=== PATIENT | male | born 1965 | race Caucasian/White ===

== ENCOUNTER 2018-08-09 13:02 | Outpatient (CLI) | payer OTHER | END 2018-08-09 13:03 | disposition short-term general hospital (02) | LOC: EMS 13:02 | PROVIDERS: ATTEND Surgery | DX: R42 Dizziness and giddiness (principal) | CPT/HCPCS: A0425; A0427 ==

== ENCOUNTER 2018-08-18 08:05 | Emergency (ER) | payer OTHER ==
[2018-08-18] MEDS ORDERED: ADENOSINE 6 MG/2 ML VIAL IVP STA (08:51)
[2018-08-18] MEDS ORDERED: SODIUM CHLORIDE 0.9% 1,000 ML IV ONE (08:51)
--- NOTE | 2018-08-18 08:53 | ED Physician Documentation ---
History of Present Illness - Stated complaint Stated Complaint: ELEVATED HEART RATE - Chief complaint Chief Complaint: Cardiac - History obtained from History obtained from: Patient - History of Present Illness Timing: Last night - Additonal information Additional information: 53-year-old male with a history of SVT has developed symptoms last night he felt that he was able to get his rate down and but awoke this morning with a rapid heart rate again. He is come in this morning feeling weak but not ill. He denies any recent illness denies any fever vomiting diarrhea. He has had a cough for the past 3 weeks. He states that over the past year he has had rapid heart rate approximately 9 times and 10 days ago he went into the emergency department at [facility] in [place] and required cardioversion with adenosine. [facility] and is awaiting consultation with cardiology through the [facility]. He is not currently on any medications. Review of Systems Constitutional: denies: Fever, Chills, Myalgias Eyes: denies: Decreased vision Ears: denies: Ear pain Nose: reports: Rhinorrhea / runny nose, Congestion Throat: reports: Sore throat Cardiac: reports: Palpitations. denies: Chest pain / pressure Respiratory: reports: Cough. denies: Dyspnea GI: denies: Abdominal Pain, Nausea, Vomiting : denies: Dysuria, Frequency Skin: denies: Rash Musculoskeletal: denies: Neck pain, Back pain, Extremity pain Neurologic: denies: Generalized weakness, Focal weakness, Numbness PD PAST MEDICAL HISTORY - Past Medical History Past Medical History: Yes Cardiovascular: Arrhythmia - Past Surgical History General: Hiatal hernia repair Ortho: Amputation - Present Medications Home Medications: Ambulatory Orders Medication Instructions Recorded Confirmed No Known Home Medications 08/18/18 08/18/18 - Allergies Allergies/Adverse Reactions: Allergies Allergy/AdvReac Type Severity Reaction Status Date / Time No Known Drug Allergies Allergy Verified 08/18/18 08:23 - Social History Does the pt smoke?: No Smoking Status: Never smoker Does the pt drink ETOH?: Yes Does the pt have substance abuse?: No - Immunizations Immunizations are current?: Yes PD ED PE NORMAL - Vitals Vital signs reviewed: Yes (tachy ) - General General: Alert and oriented X 3, No acute distress, Well developed/nourished - HEENT HEENT: Atraumatic, PERRL, EOMI, Ears normal, Moist mucous membranes, Pharynx benign - Neck Neck: Supple, no meningeal sign, No bony TTP - Cardiac Cardiac: No murmur, Other (tachy and regular ) - Respiratory Respiratory: No respiratory distress, Clear bilaterally - Abdomen Abdomen: Soft, Non tender - Back Back: No CVA TTP, No spinal TTP - Derm Derm: Normal color, Warm and dry, No rash - Extremities Extremities: No edema, Other (There is a left BKA present. ) - Neuro Neuro: Alert and oriented X 3, room maid 2-12 intact, No motor deficit, No sensory deficit, Normal speech Eye Opening: Spontaneous Motor: Obeys Commands Verbal: Oriented GCS Score: 15 - Psych Psych: Normal mood, Normal affect Results - Vitals Vitals: Vital Signs - 24 hr 08/18/18 08/18/18 08/18/18 08:18 08:23 08:25 Temperature 97.8 C H Heart Rate 146 H 146 H Respiratory 16 16 Rate Blood Pressure 106/82 H 77/64 L Blood Pressure 92/74 [Right] O2 Saturation 96 95 08/18/18 08/18/18 08/18/18 09:00 09:06 09:08 Temperature Heart Rate 139 H 78 76 Respiratory 13 12 Rate Blood Pressure 101/79 125/91 H 123/89 H Blood Pressure [Right] O2 Saturation 97 95 08/18/18 08/18/18 08/18/18 09:20 09:30 10:43 Temperature Heart Rate 70 Respiratory 15 Rate Blood Pressure 122/82 H 126/94 H 134/93 H Blood Pressure [Right] O2 Saturation 97 Oxygen O2 Source Room air - EKG (time done) 0814 Rhythm: Other (junctional tachycardia) [place]: LAD Ischemia: Normal ST segments Compare to prior EKG: Old EKG unavailable Computer interpretation: Agree with computer - Labs Labs: Laboratory Tests 08/18/18 08/18/18 08/18/18 08:40 08:40 08:40 WBC 8.7 RBC 5.09 Hgb 14.5 Hct 43.9 MCV 86.3 MCH 28.6 MCHC 33.1 RDW 13.7 Plt Count 259 MPV 8.6 Neut # (Auto) 5.3 Lymph # (Auto) 2.1 [place] # (Auto) 0.9 Eos # (Auto) 0.3 Baso # (Auto) 0.0 Absolute Nucleated RBC 0.00 Nucleated RBC % 0.0 Sodium 138 Potassium 4.6 Chloride 102 Carbon Dioxide 25 Anion Gap 11.0 BUN 14 Creatinine 0.9 Estimated GFR (MDRD) 88 L Glucose 112 H Calcium 9.1 Total Bilirubin 0.9 AST 23 ALT 19 Alkaline Phosphatase 83 Troponin I < 0.04 Total Protein 6.8 Albumin 4.0 Globulin 2.8 Albumin/Globulin Ratio 1.4 Lipase 34 Procedures - IVC sono (time) 0850 Bedside IVC sono: IVC measures (cm) (1.3), IVC collapsed c insp (cm) (complete), Dehydration (est 1 liter deficit) PD MEDICAL DECISION MAKING - ED course Complexity details: reviewed old records, reviewed results, re-evaluated patient, considered differential, d/w patient ED course: 53-year-old male with a history of SVT has developed rapid heart rate this morning he has persistence of his rapid heart rate he appears to tolerate the rhythm and is mildly volume depleted. Saline is administered as well as 6 mg of adenosine with conversion to a normal sinus rhythm. Departure - Departure Disposition: 01 Home, Self Care Clinical Impression: SVT (supraventricular tachycardia), Dehydration Condition: Stable Instructions: ED Dehydration, ED Tachycardia Pat PSVT Follow-Up: Your, doctor at the [facility] [Other] Discharge Date/Time: 08/18/18 10:50
[2018-08-18 09:29] LABS: BASOPHILS % (AUTO) 0.5 %; EOSINOPHILS # (AUTO) 0.3 10^3/uL (0.0-0.7); HGB - HEMOGLOBIN 14.5 g/dL (14.0-18.0); LYMPHOCYTES # (AUTO) 2.1 10^3/uL (1.5-3.5); LYMPHOCYTES % (AUTO) 24.4 %; MEAN CORPUSCULAR HEMOGLOBIN 28.6 pg (27.0-31.0); MEAN CORPUSCULAR HGB CONC 33.1 g/dL (32.0-36.0); MEAN CORPUSCULAR VOLUME 86.3 fL (80.0-94.0); MEAN PLATELET VOLUME 8.6 fL (7.4-11.4); MONOCYTES # (AUTO) 0.9 10^3/uL (0.0-1.0); MONOCYTES % (AUTO) 10.2 %; NEUTROPHILS # (AUTO) 5.3 10^3/uL (1.5-6.6); NEUTROPHILS % (AUTO) 60.9 %; PLT - PLATELET COUNT 259 10^3/uL (130-450); RED BLOOD COUNT 5.09 10^6/uL (4.70-6.10); RED CELL DISTRIBUTION WIDTH 13.7 % (12.0-15.0); WHITE BLOOD COUNT 8.7 x10^3/uL (4.8-10.8)
[2018-08-18 09:32] LABS: ALBUMIN/GLOBULIN RATIO 1.4 (1.0-2.2); BILIRUBIN,TOTAL 0.9 mg/dL (0.2-1.0); CALCIUM 9.1 mg/dL (8.5-10.3); CREATININE 0.9 mg/dL (0.6-1.2); TOTAL PROTEIN 6.8 g/dL (6.7-8.2)
[2018-08-18 10:44] VITALS: BP 134/93
== END 2018-08-18 10:50 | disposition home or self-care (01) ==
LOC: ED 08:05
DX: I47.1 Supraventricular tachycardia (principal); E86.0 Dehydration
CPT/HCPCS: 36415; 80053; 83690; 84484; 85025; 93005; 96361; 96374; 99284; J0153

== ENCOUNTER 2018-11-26 18:43 | Emergency (ER) | payer OTHER ==
[2018-11-26 19:17] LABS: BASOPHILS % (AUTO) 0.5 %; EOSINOPHILS # (AUTO) 0.3 10^3/uL (0.0-0.7); EOSINOPHILS % (AUTO) 4.3 %; HGB - HEMOGLOBIN 15.1 g/dL (14.0-18.0); LYMPHOCYTES # (AUTO) 2.1 10^3/uL (1.5-3.5); LYMPHOCYTES % (AUTO) 29.1 %; MEAN CORPUSCULAR HEMOGLOBIN 29.6 pg (27.0-31.0); MEAN CORPUSCULAR HGB CONC 33.8 g/dL (32.0-36.0); MEAN CORPUSCULAR VOLUME 87.7 fL (80.0-94.0); MEAN PLATELET VOLUME 8.8 fL (7.4-11.4); MONOCYTES # (AUTO) 0.6 10^3/uL (0.0-1.0); MONOCYTES % (AUTO) 7.6 %; NEUTROPHILS # (AUTO) 4.2 10^3/uL (1.5-6.6); NEUTROPHILS % (AUTO) 58.5 %; PLT - PLATELET COUNT 246 10^3/uL (130-450); RED CELL DISTRIBUTION WIDTH 13.9 % (12.0-15.0); WHITE BLOOD COUNT 7.2 x10^3/uL (4.8-10.8)
[2018-11-26] MEDS ORDERED: ADENOSINE 6 MG/2 ML VIAL IVP STA ×2 (19:24→19:38)
[2018-11-26] MEDS ORDERED: SODIUM CHLORIDE 0.9% 1,000 ML IV ONE (19:24)
--- NOTE | 2018-11-26 19:25 | ED Physician Documentation ---
PD HPI CHEST PAIN - Stated complaint Stated Complaint: ELEVATED HEART RATE - Chief complaint Chief Complaint: Cardiac - History obtained from History obtained from: Patient - History of Present Illness Timing - onset: How many hours ago (couple), Today Timing - details: Abrupt onset, Still present (tried valsalva at home without improvement.) Quality: Tightness Location: Substernal Associated symptoms: Palpitations. No: Shortness of air, Diaphoresis, Nausea Similar symptoms before: Diagnosis (SVT) Recently seen: Other (getting referral to Cardiology at [facility].) Review of Systems Constitutional: denies: Fever Nose: denies: Rhinorrhea / runny nose, Congestion Cardiac: reports: Palpitations Respiratory: denies: Dyspnea, Cough GI: denies: Vomiting, Diarrhea PD PAST MEDICAL HISTORY - Past Medical History Cardiovascular: Arrhythmia - Past Surgical History General: Hiatal hernia repair Ortho: Amputation - Present Medications Home Medications: Ambulatory Orders Medication Instructions Recorded Confirmed No Known Home Medications 08/18/18 08/18/18 - Allergies Allergies/Adverse Reactions: Allergies Allergy/AdvReac Type Severity Reaction Status Date / Time No Known Drug Allergies Allergy Verified 08/18/18 08:23 - Social History Does the pt smoke?: No Smoking Status: Never smoker Does the pt drink ETOH?: Yes Does the pt have substance abuse?: No - Immunizations Immunizations are current?: Yes PD ED PE NORMAL - Vitals Vital signs reviewed: Yes - General General: Alert and oriented X 3, No acute distress, Well developed/nourished - Neck Neck: Supple, no meningeal sign, No adenopathy, No JVD - Cardiac Cardiac: No murmur. No: RRR (fast at 150s, regular) - Respiratory Respiratory: Clear bilaterally - Abdomen Abdomen: Soft, Non tender - Derm Derm: Normal color, Warm and dry - Extremities Extremities: Other (prior leg amputation) - Neuro Neuro: Alert and oriented X 3, No motor deficit, Normal speech Results - Vitals Vitals: Oxygen O2 Source Room air - EKG (time done) 18:58 Rate: Rate (enter#) (158) Rhythm: SVT [place]: Normal Ischemia: Normal ST segments. No: ST elevation c/w ischemia, ST depression 19:39 Rate: Rate (enter#) (79) Rhythm: NSR [place]: Normal Intervals: Normal [place] QRS: Normal Ischemia: Normal ST segments. No: ST elevation c/w ischemia, ST depression - Labs Labs: Laboratory Tests 11/26/18 11/26/18 11/26/18 19:06 19:06 19:06 WBC 7.2 RBC 5.10 Hgb 15.1 Hct 44.7 MCV 87.7 MCH 29.6 MCHC 33.8 RDW 13.9 Plt Count 246 MPV 8.8 Neut # (Auto) 4.2 Lymph # (Auto) 2.1 [place] # (Auto) 0.6 Eos # (Auto) 0.3 Baso # (Auto) 0.0 Absolute Nucleated RBC 0.01 Nucleated RBC % 0.1 Sodium 137 Potassium 4.0 Chloride 104 Carbon Dioxide 21 Anion Gap 12.0 BUN 13 Creatinine 1.0 Estimated GFR (MDRD) 78 L Glucose 143 H Calcium 9.9 Magnesium Total Bilirubin 0.9 AST 22 ALT 20 Alkaline Phosphatase 82 Troponin I < 0.04 Total Protein 7.8 Albumin 4.6 Globulin 3.2 Albumin/Globulin Ratio 1.4 Lipase 42 11/26/18 19:06 WBC RBC Hgb Hct MCV MCH MCHC RDW Plt Count MPV Neut # (Auto) Lymph # (Auto) [place] # (Auto) Eos # (Auto) Baso # (Auto) Absolute Nucleated RBC Nucleated RBC % Sodium Potassium Chloride Carbon Dioxide Anion Gap BUN Creatinine Estimated GFR (MDRD) Glucose Calcium Magnesium 2.1 Total Bilirubin AST ALT Alkaline Phosphatase Troponin I Total Protein Albumin Globulin Albumin/Globulin Ratio Lipase PD MEDICAL DECISION MAKING - ED course Complexity details: re-evaluated patient (converted to NSR with adenosine.), considered differential (Given adenosine with conversion to NSR at 12 mg dose. ), d/w patient Departure - Departure Disposition: 01 Home, Self Care Clinical Impression: SVT (supraventricular tachycardia) Condition: Stable Record reviewed to determine appropriate education?: Yes Instructions: ED Tachycardia Pat PSVT Follow-Up: Schuyler Davis MD [Primary Care Provider] - Comments: Increase your beta raul dose from once daily to twice a day. Go back to the once a day if you feel that you are getting lightheaded or your blood pressure may be low. Follow-up with cardiology when the referral goes through. Stay well-hydrated. Discharge Date/Time: 11/26/18 20:21
[2018-11-26 19:27] LABS: ALBUMIN 4.6 g/dL (3.2-5.5); ALBUMIN/GLOBULIN RATIO 1.4 (1.0-2.2); BILIRUBIN,TOTAL 0.9 mg/dL (0.2-1.0); CALCIUM 9.9 mg/dL (8.5-10.3); TOTAL PROTEIN 7.8 g/dL (6.7-8.2)
[2018-11-26] MEDS ORDERED: ADENOSINE 6 MG/2 ML VIAL IVP ONE (19:47)
[2018-11-26 20:20] VITALS: BP 115/72
== END 2018-11-26 20:21 | disposition home or self-care (01) ==
LOC: ED 18:43
DX: I47.1 Supraventricular tachycardia (principal)
CPT/HCPCS: 36415; 80053; 83690; 83735; 84484; 85025; 93005; 96374; 99284; J0153

== ENCOUNTER 2019-01-01 04:08 | Emergency (ER) | payer OTHER ==
--- NOTE | 2019-01-01 04:21 | ED Physician Documentation ---
PD HPI CHEST PAIN - Stated complaint Stated Complaint: FAST HEART - Chief complaint Chief Complaint: Cardiac - History obtained from History obtained from: Patient - History of Present Illness Timing - onset: How many hours ago (4-5) Timing - onset during: Rest Timing - duration: Hours (4-5) Timing - details: Abrupt onset, Still present Quality: Tightness. No: Pressure Location: Substernal Improved by: No: Rest Worsened by: No: Inspiration, Movement Associated symptoms: Feeling faint / dizzy, General Weakness, Palpitations. 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 He has an appointment January 29. He has had echocardiogram appointment on the of this month. He is on metoprolol daily.) Review of Systems Constitutional: denies: Fever, Chills, Myalgias Nose: denies: Rhinorrhea / runny nose, Congestion Throat: denies: Sore throat PD PAST MEDICAL HISTORY - Past Medical History Cardiovascular: Arrhythmia Respiratory: None Neuro: None Endocrine/Autoimmune: None - Past Surgical History General: Hiatal hernia repair Ortho: Amputation - Present Medications Home Medications: Ambulatory Orders Medication Instructions Recorded Confirmed No Known Home Medications 08/18/18 08/18/18 - Allergies Allergies/Adverse Reactions: Allergies Allergy/AdvReac Type Severity Reaction Status Date / Time No Known Drug Allergies Allergy Verified 01/01/19 04:22 - Social History Does the pt smoke?: No Smoking Status: Never smoker Does the pt drink ETOH?: Yes Does the pt have substance abuse?: No - Immunizations Immunizations are current?: Yes PD ED PE NORMAL - Vitals Vital signs reviewed: Yes (initially low) - General General: Alert and oriented X 3, No acute distress, Well developed/nourished - Neck Neck: Supple, no meningeal sign, No adenopathy - Cardiac Cardiac: No: RRR (fast but regular without murmur. ) - Respiratory Respiratory: No respiratory distress, Clear bilaterally - Derm Derm: Normal color, Warm and dry - Extremities Extremities: Other (prior left leg CKO) - Neuro Neuro: Alert and oriented X 3 (prior left leg amputation noted), No motor deficit, Normal speech Results - Vitals Vitals: Vital Signs - 24 hr 01/01/19 01/01/19 01/01/19 04:17 04:23 04:25 Temperature 36.3 C L Heart Rate 150 H 141 H 139 H Respiratory 26 H 16 21 Rate Blood Pressure 93/61 83/64 L 93/62 O2 Saturation 96 95 01/01/19 01/01/19 01/01/19 04:30 04:41 04:57 Temperature Heart Rate 137 H 75 69 Respiratory 18 17 23 Rate Blood Pressure 89/60 L 104/70 103/65 O2 Saturation 95 95 95 Oxygen O2 Source Room air - EKG (time done) 04:13 Rate: Rate (enter#) (142) Rhythm: SVT [place]: Normal Ischemia: Non specific changes post adenosine Rhythm: NSR [place]: Normal Intervals: Normal [place] QRS: Normal Ischemia: Normal ST segments. No: ST elevation c/w ischemia, ST depression PD MEDICAL DECISION MAKING - ED course Complexity details: re-evaluated patient (He did not convert at all at 6 mg but did at 12 mg adenosine IV.), considered differential (He has had prior episodes like this looking at electrolytes. He did try some Valsalva maneuvers at home. Previously it did take an adenosine to fix him. He is agreeable to that.), d/w patient Departure - Departure Disposition: Home, Self Care Clinical Impression: SVT (supraventricular tachycardia), Transient hypotension Condition: Stable Record reviewed to determine appropriate education?: Yes Instructions: ED Tachycardia Pat PSVT Comments: Stay well-hydrated. Continue your usual medications. Follow-up with cardiology as planned in January and for your echocardiogram later this month. Return as needed.
[2019-01-01] MEDS ORDERED: ADENOSINE 6 MG/2 ML VIAL IVP ONE (04:36)
[2019-01-01] MEDS ORDERED: ADENOSINE 6 MG/2 ML VIAL IVP STA ×2 (04:44)
[2019-01-01] MEDS ORDERED: SODIUM CHLORIDE 0.9% 1,000 ML IV ONE (04:44)
[2019-01-01 05:11] VITALS: BP 106/72
== END 2019-01-01 05:11 | disposition home or self-care (01) ==
LOC: ED 04:08
DX: I47.1 Supraventricular tachycardia (principal); I95.9 Hypotension, unspecified
CPT/HCPCS: 93005; 96361; 96374; 99284; J0153

== ENCOUNTER 2019-02-18 17:47 | Emergency (ER) | payer OTHER ==
[2019-02-18] MEDS ORDERED: ADENOSINE 6 MG/2 ML VIAL IVP STA ×2 (18:10→18:19)
--- NOTE | 2019-02-18 18:28 | ED Physician Documentation ---
History of Present Illness - Stated complaint Stated Complaint: RAPID HEARTBEAT - Chief complaint Chief Complaint: Cardiac - History obtained from History obtained from: Patient, Family - History of Present Illness Timing: How many hours ago (2) Pain level max: 0 Pain level now: 0 Improved by: Nothing Worsened by: Nothing - Additonal information Additional information: 54-year-old male with a history of SVT he states that he felt himself going to SVT about 2 hours ago and this has continued. Scheduled for ablation on March 21. Tried Valsalva maneuvers without relief. Review of Systems Constitutional: denies: Fever, Chills Cardiac: reports: Palpitations Respiratory: denies: Cough GI: denies: Nausea, Vomiting Skin: denies: Rash Musculoskeletal: denies: Neck pain, Back pain Neurologic: denies: Headache PD PAST MEDICAL HISTORY - Past Medical History Cardiovascular: Arrhythmia Respiratory: None Neuro: None Endocrine/Autoimmune: None - Past Surgical History General: Hiatal hernia repair Ortho: Amputation - Present Medications Home Medications: Ambulatory Orders Medication Instructions Recorded Confirmed No Known Home Medications 08/18/18 08/18/18 - Allergies Allergies/Adverse Reactions: Allergies Allergy/AdvReac Type Severity Reaction Status Date / Time No Known Drug Allergies Allergy Verified 02/18/19 17:49 - Social History Does the pt smoke?: No Smoking Status: Never smoker Does the pt drink ETOH?: Yes Does the pt have substance abuse?: No - Immunizations Immunizations are current?: Yes - POLST Patient has POLST: No PD ED PE NORMAL - Vitals Vital signs reviewed: Yes - General General: Alert and oriented X 3, No acute distress - HEENT HEENT: Moist mucous membranes - Neck Neck: Supple, no meningeal sign - Cardiac Cardiac: Other (tachycardic) - Respiratory Respiratory: No respiratory distress, Clear bilaterally - Abdomen Abdomen: Soft, Non tender, Non distended - Derm Derm: Warm and dry - Extremities Extremities: Other (LLE - AKA) - Neuro Neuro: Alert and oriented X 3 Results - Vitals Vitals: Vital Signs - 24 hr 02/18/19 02/18/19 02/18/19 17:49 18:15 18:20 Temperature 36.8 C Heart Rate 154 H 141 H 133 H Respiratory 18 Rate Blood Pressure 113/82 H O2 Saturation 98 02/18/19 18:37 Temperature 36.5 C Heart Rate 75 Respiratory 22 Rate Blood Pressure 131/91 H O2 Saturation 96 Oxygen O2 Source Room air - EKG (time done) 1827 Rate: Rate (enter#) (66) Rhythm: NSR [place]: Normal Intervals: Normal [place] QRS: Normal Ischemia: Normal ST segments 1801 Rate: Rate (enter#) (139) Rhythm: SVT QRS: Normal Ischemia: Non specific changes PD MEDICAL DECISION MAKING - ED course Complexity details: reviewed results, re-evaluated patient, considered differential, d/w patient ED course: Patient with SVT. Converted with 12 mg of adenosine. 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 Patient counseled regarding signs and symptoms for which I believe and urgent re-evaluation would be necessary. Patient with good understanding of and agreement to plan and is comfortable going home at this time This document was made in part using voice recognition software. While efforts are made to proofread this document, sound alike and grammatical errors may occur. Departure - Departure Disposition: 01 Home, Self Care Clinical Impression: SVT (supraventricular tachycardia) Condition: Good Instructions: ED Tachycardia Pat PSVT Follow-Up: your,doctor as needed [Other] Comments: Return if you worsen. Continue your current medications at home. Discharge Date/Time: 02/18/19 18:51
[2019-02-18] MEDS ORDERED: ADENOSINE 6 MG/2 ML VIAL IVP ONE (18:30)
[2019-02-18 18:38] VITALS: BP 131/91
== END 2019-02-18 18:51 | disposition home or self-care (01) ==
LOC: ED 17:47
DX: I47.1 Supraventricular tachycardia (principal); Z89.612 Acquired absence of left leg above knee
CPT/HCPCS: 93005; 96374; 99283; 99284; J0153; 80053; 83690; 84484; 85025

== ENCOUNTER 2020-01-28 10:34 | Outpatient (CLI) | payer OTHER | END 2020-01-28 10:35 | disposition home or self-care (01) | LOC: COV 10:34 | PROVIDERS: ATTEND Family Medicine | DX: R05 Cough (principal); R06.02 Shortness of breath; R53.83 Other fatigue; M79.10 Myalgia, unspecified site; J02.9 Acute pharyngitis, unspecified; R19.7 Diarrhea, unspecified; R09.81 Nasal congestion; R43.9 Unspecified disturbances of smell and taste; Z20.828 Contact with and (suspected) exposure to other viral communicable diseases ==

== ENCOUNTER 2020-04-14 10:11 | Outpatient (CLI) | payer OTHER | END 2020-04-14 10:12 | disposition home or self-care (01) | LOC: COV 10:11 | PROVIDERS: ATTEND Family Medicine | DX: R05 Cough (principal); R06.02 Shortness of breath; M79.10 Myalgia, unspecified site; R53.83 Other fatigue; J02.9 Acute pharyngitis, unspecified; R09.81 Nasal congestion; Z20.828 Contact with and (suspected) exposure to other viral communicable diseases ==

== ENCOUNTER 2020-06-18 20:02 | Outpatient (CLI) | payer OTHER ==
--- OUTSIDE RECORDS SUMMARY | 2020-06-24 01:22 | EXTERNAL MEDICAL SUMMARY RPT | Continuity of Care Document ---
:1965 Demographics Phone Unavailable Preferred Language Unknown Marital Status Unknown Congregational Affiliation Unknown Race Unknown Ethnic Group Unknown Author Organization [facility] Address [address] [phone] Phone Care Team Providers Name Role Phone Phillips Unavailable Unavailable Allergies date description facility BEE VENOM [facility] EGGPLANT [facility] KIWI [facility] LATEX [facility] ERYTHROMYCIN BASE [facility] CHLORHEXIDINE [facility] CEFAZOLIN [facility] NO KNOWN ENVIRONMENTAL ALLERGIES [facility] No Known Drug Allergies [facility] Results test status date ordered by attending specimen jessica e null F 2020-04-14 LANG[facility] 04-14 10:20:00 10:20:00 facility observation status value reference units lab [facility]nor mal line notes range code [facility] F NEGATIVE unknown [facility] - Report scanned to Patient' s EMR. [facility] test status date ordered by attending specimen [email or web address] e null F 2020-06-18 LANG[facility]99 [facility] 06-18 17:01:00 09:10:00 facility observation status value reference units lab [facility] mal line notes range code [facility] F NEGATIVE unknown [facility] - Report scanned to Patient' s EMR. [facility] Social History date description facility [id number]
== END 2020-06-18 20:03 | disposition home or self-care (01) ==
LOC: COV 20:02
PROVIDERS: ATTEND Family Medicine
DX: R05 Cough (principal); R06.02 Shortness of breath; M79.10 Myalgia, unspecified site; R53.83 Other fatigue; R07.0 Pain in throat; R09.81 Nasal congestion; J34.89 Other specified disorders of nose and nasal sinuses; Z20.822 Contact with and (suspected) exposure to COVID-19

== ENCOUNTER 2020-08-02 18:36 | Emergency (ER) | payer OTHER ==
[2020-08-02 18:45] VITALS: BP 146/89
[2020-08-02] MEDS ORDERED: HYDROcod/ACET 5/325 Prepack 4 PO STA (18:56)
[2020-08-02] MEDS ORDERED: CYCLOBENZAPRINE 10 MG Prepack 2 PO STA (18:56)
[2020-08-02] MEDS ORDERED: IBUPROFEN 800 MG TABLET PO STA (18:56)
--- NOTE | 2020-08-02 18:58 | ED Physician Documentation ---
PD HPI BACK PAIN - Stated complaint Stated Complaint: BACK PX - Chief complaint Chief Complaint: Back Pain - History obtained from History obtained from: Patient - Additional information Additional information: He has some chronic mild back pain, but 4 days ago he started a generator and he thinks he pulled his back doing that. Since then he has had severe low back pain with some mild tingling in the left thigh. Of note in 1988 he had multiple spinous process fractures. He also is status post remote left BKA from a foot injury. Review of Systems Constitutional: reports: Reviewed and negative Nose: reports: Reviewed and negative Throat: reports: Reviewed and negative Cardiac: reports: Reviewed and negative Respiratory: reports: Reviewed and negative PD PAST MEDICAL HISTORY - Past Medical History Cardiovascular: Arrhythmia Respiratory: None Neuro: None Endocrine/Autoimmune: None - Past Surgical History General: Hiatal hernia repair Ortho: Amputation - Present Medications Home Medications: Ambulatory Orders Medication Instructions Recorded Confirmed Cyclobenzaprine [Flexeril] 10 mg PO TID PRN #20 tab 08/02/20 HYDROcod/ACETAM 5/325 [[place] 5/325] 1 - 2 tab PO Q6H PRN #15 tab 08/02/20 Ibuprofen [Motrin] 800 mg PO Q8H PRN #30 tab 08/02/20 - Allergies Allergies/Adverse Reactions: Allergies Allergy/AdvReac Type Severity Reaction Status Date / Time No Known Drug Allergies Allergy Verified 08/02/20 18:45 - Social History Does the pt smoke?: No Smoking Status: Never smoker Does the pt drink ETOH?: Yes Does the pt have substance abuse?: No - Immunizations Immunizations are current?: Yes - POLST Patient has POLST: No PD ED PE NORMAL - Vitals Vital signs reviewed: Yes - General General: Alert and oriented X 3, No acute distress - Neck Neck: Supple, no meningeal sign, No bony TTP - Extremities Extremities: Other (Muscular tenderness of the left paralumbar area. I am unable to check reflexes in the left lower extremity due to his BKA. Mildly diminished sensation in the left thigh.) Results - Vitals Vitals: Vital Signs - 24 hr 08/02/20 18:40 Temperature 36.3 C L Heart Rate 64 Respiratory 17 Rate Blood Pressure 146/89 H O2 Saturation 100 Oxygen O2 Source Room air PD MEDICAL DECISION MAKING - ED course ED course: This patient has seemingly uncomplicated musculoskeletal back pain. The patient has no "red flags." Specifically denies IV drug use, fevers, incontinence, saddle anesthesia. Spinal epidural abscess was considered, given that the patient has no fever, is not diabetic, has no spinal tenderness, does not use IV drugs, and has no bilateral neurologic symptoms, the diagnosis of spinal epidural abscess is considered exceedingly unlikely. Departure - Departure Disposition: 01 Home, Self Care Clinical Impression: Back pain Qualifiers: Back pain location: low back pain Chronicity: unspecified Back pain laterality: bilateral Sciatica presence: without sciatica Qualified Code(s): M54.5 - Low back pain Condition: Good Record reviewed to determine appropriate education?: Yes Instructions: ED Low Back Pain Injury Prescriptions: Cyclobenzaprine [Flexeril] 10 mg PO TID PRN #20 tab PRN Reason: Spasms Ibuprofen [Motrin] 800 mg PO Q8H PRN #30 tab PRN Reason: PAIN &/OR FEVER HYDROcod/ACETAM 5/325 [[place] 5/325] 1 - 2 tab PO Q6H PRN #15 tab PRN Reason: Pain Comments: Call your doctor to arrange a follow-up appointment, make the next available appointment. In the interim, return anytime if worse or if new symptoms develop.
== END 2020-08-02 19:11 | disposition home or self-care (01) ==
LOC: ED 18:36
DX: M54.5 Low back pain (principal); R20.2 Paresthesia of skin; Z89.512 Acquired absence of left leg below knee
CPT/HCPCS: 99283; A9270

== ENCOUNTER 2021-08-04 16:53 | Outpatient (CLI) | payer OTHER ==
[2021-08-04 20:19] LABS: BASOPHILS % (AUTO) 0.6 %; EOSINOPHILS # (AUTO) 0.3 10^3/uL (0.0-0.7); EOSINOPHILS % (AUTO) 4.6 %; HCT - HEMATOCRIT 43.9 % (42.0-52.0); LYMPHOCYTES % (AUTO) 28.3 %; MEAN CORPUSCULAR HEMOGLOBIN 28.8 pg (27.0-31.0); MEAN CORPUSCULAR HGB CONC 31.9 g/dL (32.0-36.0); MEAN CORPUSCULAR VOLUME 90.3 fL (80.0-94.0); MEAN PLATELET VOLUME 10.7 fL (7.4-11.4); MONOCYTES # (AUTO) 0.5 10^3/uL (0.0-1.0); MONOCYTES % (AUTO) 6.8 %; NEUTROPHILS # (AUTO) 4.2 10^3/uL (1.5-6.6); PLT - PLATELET COUNT 265 10^3/uL (130-450); RED BLOOD COUNT 4.86 10^6/uL (4.70-6.10); RED CELL DISTRIBUTION WIDTH 13.1 % (12.0-15.0); WHITE BLOOD COUNT 7.1 x10^3/uL (4.8-10.8)
[2021-08-04 20:45] LABS: THYROID STIMULATING HORMONE 2.95 uIU/mL (0.34-5.60)
== END 2021-08-04 16:54 | disposition home or self-care (01) ==
LOC: LAB.S 16:53
PROVIDERS: ATTEND Internal Medicine
DX: R53.83 Other fatigue (principal); Z79.899 Other long term (current) drug therapy
CPT/HCPCS: 36415; 81599; 84402; 84403; 84443; 85025

== ENCOUNTER 2023-06-27 08:00 | Outpatient (CLI) | payer OTHER | END 2023-06-27 23:59 | disposition home or self-care (01) | LOC: LAB.S 08:00 | PROVIDERS: ATTEND Physician Assistant Medical | DX: N39.0 Urinary tract infection, site not specified (principal) | CPT/HCPCS: 87086 ==